=== PATIENT | male | born 1960 | race Caucasian/White ===

== ENCOUNTER 2024-01-25 08:15 | Outpatient (CLI) | payer BC | END 2024-01-25 08:16 | disposition home or self-care (01) | LOC: CSHSLEEP 08:15 | PROVIDERS: ATTEND Family Medicine | DX: G47.33 Obstructive sleep apnea (adult) (pediatric) (principal); R53.83 Other fatigue; R09.89 Other specified symptoms and signs involving the circulatory and respiratory systems; F32.A Depression, unspecified; E66.9 Obesity, unspecified; Z68.41 Body mass index [BMI] 40.0-44.9, adult; R06.83 Snoring | CPT/HCPCS: 95800 ==

== ENCOUNTER 2024-04-03 08:35 | Outpatient (CLI) | payer BC | END 2024-04-03 08:36 | disposition home or self-care (01) | LOC: CSHSLEEP 08:35 | PROVIDERS: ATTEND Family Medicine | DX: G47.33 Obstructive sleep apnea (adult) (pediatric) (principal); R53.83 Other fatigue; R09.89 Other specified symptoms and signs involving the circulatory and respiratory systems; F32.A Depression, unspecified; E66.9 Obesity, unspecified; Z68.41 Body mass index [BMI] 40.0-44.9, adult; R06.83 Snoring | CPT/HCPCS: 95811 ==

== ENCOUNTER 2024-09-18 10:21 | Outpatient (CLI) | payer MEDICARE | END 2024-09-18 10:22 | disposition home or self-care (01) | LOC: CSHCP 10:21 | PROVIDERS: ATTEND Internal Medicine Critical Care Medicine | DX: J44.89 Other specified chronic obstructive pulmonary disease (principal) | CPT/HCPCS: 94060; 94664; 94726; 94729; 94760 ==